=== PATIENT | male | born 2000 ===

== ENCOUNTER 2025-04-06 14:39 | Inpatient (IN) | payer BC, SELFPAY ==
[2025-04-06] MEDS ORDERED: Dexamethasone 10 MG/ML VIAL ONE (14:50)
[2025-04-06] MEDS ORDERED: VANCOMYCIN 2 GRAM/400 ML BAG 400 ML ONE (14:58)
[2025-04-06] MEDS ORDERED: Cefepime 2 GM VIAL ONE (14:58)
[2025-04-06 15:06] LABS: Actual Bicarbonate (HCO3v) 28.2 mEq/L (22-28); Analyzer IN Cardio ER; Base Excess 0.7 mEq/L (-2.0 to +3.0); Calcium, Ionized (venous) 1.05 mmol/L (1.16-1.32); Chloride (VBG) 94 mmol/L (98-106); Hematocrit-VBG 38 % (42.0-52.0); Hemoglobin (Hb) 12.9 g/dL (13.2-17.3); Potassium (VBG) 5.65 mmol/L (3.70-5.30); Sodium 129 mmol/L (133-146)
[2025-04-06 15:14] LABS: Hematocrit 37.2 % (42.0-52.0); Hemoglobin 11.4 g/dL (14.0-18.0); Mean Corpuscular Hemoglobin 23.7 pg (27.0-31.0); Mean Corpuscular Volume 77.2 fL (78.0-98.0); Platelet Count 439 10x3/uL (130-400); Red Blood Cell (RBC) Count 4.82 mill/uL (4.70-6.10); White Blood Cell (WBC) Count 25.68 10x3/uL (4.8-10.8)
[2025-04-06 15:19] LABS: ALT (SGPT) 592 U/L (Less than 45); AST (SGOT) 928 U/L (11-34); Albumin 3.2 g/dL (3.1-4.5); Alkaline Phosphatase 64 U/L (40-110); Anion Gap 20 mmol/L (10-20); BUN (Urea Nitrogen) 14 mg/dL (8.9-20.6); Bilirubin, Total 1.0 mg/dL (0.3-1.2); Calc. Creatinine Clearance 0 mL/min (70-130); Calcium 8.3 mg/dL (7.8-10.44); Carbon Dioxide 22 mmol/L (22-29); Chloride 93 mmol/L (98-107); Globulin 4.2 g/dL (2.4-3.5); Glucose 112 mg/dL (70-105); Potassium 5.7 mmol/L (3.5-5.1); Sodium 129 mmol/L (136-145)
[2025-04-06 15:32] LABS: Macrocytosis SLIGHT = 6-15 cells HPF (0-5); Microcytosis SLIGHT = 6-15 cells HPF (0-5); Ovalocytes SLIGHT = 2-5 cells HPF (0-1); Platelet Adequacy Comment Platelets Normal; Polychromasia SLIGHT = 2-3 cells HPF (0-2); Smudge Cells 1.0 %
[2025-04-06] MEDS ORDERED: Senokot S 8.6-50 MG TAB PO PRN (16:27)
[2025-04-06] MEDS ORDERED: Ondansetron PF 4 MG/2 ML Vial IVP PRN (16:27)
[2025-04-06] MEDS: Azithromycin 500 MG in Sodium Chloride 0.9% 250 ML 250 ML IVPB SCH (18:53)
[2025-04-06] MEDS: cefTRIAXone\\ROCEPHIN 1 GM in Sodium Chloride 0.9% 100 ML IVPB SCH (18:54)
[2025-04-06 19:20] LABS: Anion Gap 10 mmol/L (10-20); BUN (Urea Nitrogen) 10 mg/dL (8.9-20.6); Calc. Creatinine Clearance 0 mL/min (70-130); Calcium 8.3 mg/dL (7.8-10.44); Carbon Dioxide 26 mmol/L (22-29); Chloride 98 mmol/L (98-107); Glucose 119 mg/dL (70-105); Potassium 5.7 mmol/L (3.5-5.1); Sodium 128 mmol/L (136-145)
[2025-04-06 19:39] VITALS: BMI 61.5
[2025-04-06] MEDS: Acetaminophen 325 MG TAB PO PRN (20:49)
[2025-04-06 21:18] LABS: Cocaine Metabolite Screen Negative (Negative); THC/Cannabinoid Screen Negative (Negative); Tricyclic Screen Negative (Negative)
[2025-04-06] MEDS: Enoxaparin 60 MG (0.6 mL) SYRINGE SC SCH (21:42)
[2025-04-06] MEDS: Famotidine/PF 20 mg/2ml Vial SLOW IVP SCH (21:43)
[2025-04-06] MEDS: Sodium Bicarb 50 MEQ/50 ML Abboject 8.4% SYRINGE IVP SCH (21:44)
[2025-04-06] MEDS: Dextrose 50% Abboject 50 ML SYRINGE SLOW IVP PRN (22:54)
[2025-04-07 02:43] LABS: Legionella Urinary Ag Negative (Negative)
[2025-04-07 03:10] LABS: Strep pneumo Urine Ag NEGATIVE (NEGATIVE)
[2025-04-07 04:12] LABS: #Basophils 0.06 10x3/uL (0.0-0.2); #Eosinophils Less than 0.03 10x3/uL (0.0-0.7); #Monocytes 0.44 10x3/uL (0.11-0.59); #Neutrophils 17.03 10x3/uL (1.40-6.50); %Basophils 0.3 % (0.0-1.0); %Eosinophils 0.0 % (0.0-10.0); %Lymphocytes 8.3 % (21.0-51.0); %Monocytes 2.3 % (0.0-10.0); %Neutrophils 87.9 % (42.0-75.0); Hematocrit 34.3 % (42.0-52.0); Hemoglobin 10.3 g/dL (14.0-18.0); Mean Corpuscular Hemoglobin 23.7 pg (27.0-31.0); Mean Corpuscular Volume 79.0 fL (78.0-98.0); Platelet Count 375 10x3/uL (130-400); Red Blood Cell (RBC) Count 4.34 mill/uL (4.70-6.10); White Blood Cell (WBC) Count 19.36 10x3/uL (4.8-10.8)
[2025-04-07 04:31] LABS: Cardiac Risk 8.1 (Less than 4.5); Cholesterol 130.0 mg/dl (< 200 Desired); HDL Cholesterol 16.0 mg/dL (>60 Neg Risk); LDL Cholesterol, Calculated 87.0 mg/dL; Triglycerides 133.0 mg/dL (Less than 150)
[2025-04-07 04:34] LABS: ALT (SGPT) 500 U/L (Less than 45); AST (SGOT) 496 U/L (11-34); Albumin 2.9 g/dL (3.1-4.5); Alkaline Phosphatase 56 U/L (40-110); Anion Gap 10 mmol/L (10-20); BUN (Urea Nitrogen) 12 mg/dL (8.9-20.6); Bilirubin, Total 0.7 mg/dL (0.3-1.2); Calc. Creatinine Clearance 426 mL/min (70-130); Calcium 8.3 mg/dL (7.8-10.44); Carbon Dioxide 26 mmol/L (22-29); Chloride 99 mmol/L (98-107); Globulin 3.8 g/dL (2.4-3.5); Glucose 134 mg/dL (70-105); Potassium 5.2 mmol/L (3.5-5.1); Sodium 130 mmol/L (136-145)
[2025-04-07 04:40] LABS: CRP, High Sensitivity at Bryan 20.35 mg/dL (< or = 0.5)
[2025-04-07 04:50] LABS: Hep A IgM AB NONREACTIVE (NonReactive); Hep A IgM S/CO 0.23 S/CO (0-0.79); Hep B Core IgM Index 0.12 S/CO (0-0.79); Hep B Surf Ag NONREACTIVE S/CO (NonReactive); Hep C IgG Ab NONREACTIVE S/CO (NonReactive); Hep C Index 0.16 S/CO (0-0.79); Thyroid Stimulating Hormone 2.3555 uIU/mL (0.35-4.94)
[2025-04-07] MEDS: LOKELMA 10 GM PACKET PO SCH ×2 (10:16→15:59)
[2025-04-08 05:11] LABS: #Basophils 0.05 10x3/uL (0.0-0.2); #Eosinophils Less than 0.03 10x3/uL (0.0-0.7); #Monocytes 0.77 10x3/uL (0.11-0.59); #Neutrophils 18.37 10x3/uL (1.40-6.50); %Basophils 0.2 % (0.0-1.0); %Eosinophils 0.0 % (0.0-10.0); %Lymphocytes 7.3 % (21.0-51.0); %Monocytes 3.6 % (0.0-10.0); %Neutrophils 87.1 % (42.0-75.0); Hematocrit 35.2 % (42.0-52.0); Hemoglobin 10.4 g/dL (14.0-18.0); Mean Corpuscular Hemoglobin 23.4 pg (27.0-31.0); Mean Corpuscular Volume 79.1 fL (78.0-98.0); Platelet Count 441 10x3/uL (130-400); Red Blood Cell (RBC) Count 4.45 mill/uL (4.70-6.10); White Blood Cell (WBC) Count 21.11 10x3/uL (4.8-10.8)
[2025-04-08 05:53] LABS: ALT (SGPT) 453 U/L (Less than 45); AST (SGOT) 194 U/L (11-34); Albumin 2.8 g/dL (3.1-4.5); Alkaline Phosphatase 56 U/L (40-110); Anion Gap 17 mmol/L (10-20); BUN (Urea Nitrogen) 16 mg/dL (8.9-20.6); Bilirubin, Total 0.5 mg/dL (0.3-1.2); Calc. Creatinine Clearance 507 mL/min (70-130); Calcium 8.4 mg/dL (7.8-10.44); Carbon Dioxide 26 mmol/L (22-29); Chloride 98 mmol/L (98-107); Globulin 3.8 g/dL (2.4-3.5); Glucose 133 mg/dL (70-105); Potassium 4.5 mmol/L (3.5-5.1); Sodium 136 mmol/L (136-145)
[2025-04-08] MEDS: Mupirocin 1 GM TUBE NASAL DECOLONIZATION NASAL SCH (20:35)
[2025-04-09 04:38] LABS: Hematocrit 37.7 % (42.0-52.0); Hemoglobin 11.0 g/dL (14.0-18.0); Mean Corpuscular Hemoglobin 23.4 pg (27.0-31.0); Mean Corpuscular Volume 80.2 fL (78.0-98.0); Platelet Count 478 10x3/uL (130-400); Red Blood Cell (RBC) Count 4.70 mill/uL (4.70-6.10); White Blood Cell (WBC) Count 19.77 10x3/uL (4.8-10.8)
[2025-04-09 05:16] LABS: ALT (SGPT) 442 U/L (Less than 45); AST (SGOT) 157 U/L (11-34); Albumin 2.8 g/dL (3.1-4.5); Alkaline Phosphatase 60 U/L (40-110); Anion Gap 12 mmol/L (10-20); BUN (Urea Nitrogen) 17 mg/dL (8.9-20.6); Bilirubin, Total 0.5 mg/dL (0.3-1.2); Calc. Creatinine Clearance 507 mL/min (70-130); Calcium 8.2 mg/dL (7.8-10.44); Carbon Dioxide 25 mmol/L (22-29); Chloride 104 mmol/L (98-107); Globulin 3.5 g/dL (2.4-3.5); Glucose 139 mg/dL (70-105); Potassium 4.3 mmol/L (3.5-5.1); Sodium 137 mmol/L (136-145)
[2025-04-09] MEDS: predniSONE 20 MG TAB PO SCH (09:32)
[2025-04-10 08:10] VITALS: BP 135/88; TEMP 98.3
[2025-04-11] MEDS ORDERED: FLU (Fluarix Triv) 25-26 (6MOS UP)/PF 45 MCG/0.5 ML Syringe IM ONE (09:00)
== END 2025-04-10 11:53 | disposition home or self-care (01) | DRG 871 ==
LOC: ERS 14:39 → IMCU/EMU 16:18 → T4-A 04-09 10:56
PROVIDERS: ADMIT Family Medicine; ATTEND Hospitalist
PROC: 3E03329 Introduction of Other Anti-infective into Peripheral Vein, Percutaneous Approach (ICD-10-PCS; principal; 2025-04-06)
PROC: 5A09357 Assistance with Respiratory Ventilation, Less than 24 Consecutive Hours, Continuous Positive Airway Pressure (ICD-10-PCS; 2025-04-06)
PROC: 0T9B70Z Drainage of Bladder with Drainage Device, Via Natural or Artificial Opening (ICD-10-PCS; 2025-04-06)
DX: A41.9 Sepsis, unspecified organism (principal); I21.A1 Myocardial infarction type 2; J18.9 Pneumonia, unspecified organism; J96.01 Acute respiratory failure with hypoxia; J96.02 Acute respiratory failure with hypercapnia; E66.2 Morbid (severe) obesity with alveolar hypoventilation; E87.1 Hypo-osmolality and hyponatremia; E87.20 Acidosis, unspecified; Z68.43 Body mass index [BMI] 50.0-59.9, adult; R65.20 Severe sepsis without septic shock; E87.5 Hyperkalemia; L40.0 Psoriasis vulgaris; D64.9 Anemia, unspecified; K76.0 Fatty (change of) liver, not elsewhere classified
CPT/HCPCS: 0439T; 36415; 36416; 71045; 76705; 80053; 80061; 80074; 80306; 82805; 83036; 83605; 83880; 84145; 84443; 84484; 85025; 85027; 86141; 87040; 87428; 87449; 87633; 87899; 93005; 94640; 94660; 94760; 96365; 96366; 96374; 96375; 99292; J0456; J0692; J0696; J1100; J1308; J1650; J1815; J2919; J3375; J7030; J7050; J7512; J7999; Q9957